=== PATIENT | female | born 1985 | race Caucasian/White ===

== ENCOUNTER 2017-05-08 16:30 | Inpatient (IN) | payer MEDICAID, SELFPAY ==
[2015-05-18 13:12] VITALS: BMI 31.8
[2015-05-21 08:00] VITALS: BP 110/67
[2017-05-08 14:43] VITALS: BMI 32.3
[2017-05-08] MEDS: Lactated Ringers 1,000 ML 50 ML IV ×4 (17:00→23:42)
[2017-05-08 17:11] LABS: Bedside Glucose 67 mg/dL (70-110)
[2017-05-08 17:23] LABS: Hematocrit 36.5 % (37-47); Hemoglobin 12.3 g/dl (12.0-15.0); Mean Corp Hgb Conc 33.7 g/gl (32-36); Mean Corpuscular Hgb 29.3 pg (27.0-32.0); Mean Corpuscular Volume 86.9 fL (81-99); Mean Platelet Vol. 9.9 fl (6.2-12.0); Platelet Count 208 K/mm3 (150-450); RBC Distribution Width CV 14.1 % (11.6-14.6); RBC Distribution Width SD 43.1 fl (35.1-43.9); White Blood Count 15.1 K/mm3 (4.4-11.0)
[2017-05-08 17:27] LABS: Scan Indicated on CBC? Y/N NO
[2017-05-08 18:16] LABS: Bedside Glucose 72 mg/dL (70-110)
[2017-05-08 19:21] LABS: Bedside Glucose 77 mg/dL (70-110)
--- NOTE | 2017-05-08 19:33 | PCM.HP.OB ---
History Date of Admission: 05/08/17 Gestational age: 36 History of this : 32 yof @ 37 4/7 weeks w/ EDC of 05/25/17 by LMP c/w first trimester US w/ GDM on insulin presents in labor. No gross VB. Good FM. Ctxs increased in intensity this afternoon, was monitored on L&D and admitted for labor. OB h/x- 1 previous Surg hx - wisdom tooth extraction PMHX- spinal stenosis, GDM A1 previous , abnormal pap Family medical hx- noncontributory Allergies No Known Allergies Allergy (Verified 05/08/17 17:52) Current Medications Acetaminophen (Tylenol) 325 - 650 mg PO Q4H PRN PRN PRN Reason: PAIN OR FEVER >100.4F Al Hydroxide/Mg Hydroxide (Mylanta Ii) 15 - 30 ml PO Q4H PRN PRN PRN Reason: INDIGESTION Citric Acid/Sodium Citrate (Bicitra) 30 ml PO UD PRN Lactated Ringer's () 1,000 mls @ 50 mls/hr IV .Q20H RIVERA Last Admin: 05/08/17 19:28 Dose: 50 mls/hr Naloxone HCl 4 mg/ Dextrose 504 mls @ 0 mls/hr IV PRN PRN; Protocol PRN Reason: TO MAINTAIN RR>10 Stop: 05/09/17 19:27 Nalbuphine HCl (Nubain) 5 - 10 mg IV Q3H PRN PRN PRN Reason: PAIN (4-10/10) Nalbuphine HCl (Nubain) 5 mg IV Q3H PRN PRN Reason: ITCHING Stop: 05/09/17 19:26 Naloxone HCl (Narcan) 0.2 mg IV Q1M PRN PRN Reason: RR<10 AND PT UNRESPONSIVE Stop: 05/09/17 19:26 Ondansetron HCl (Zofran) 4 mg IV Q8H PRN PRN PRN Reason: NAUSEA Promethazine HCl (Phenergan (Ll)) 6.25 - 12.5 mg IV Q4H PRN PRN; Protocol PRN Reason: IF NAUSEA PERSISTS Sodium Chloride () 5 - 15 ml IV UD RIVERA Last Admin: 05/08/17 18:18 Dose: Not Given Smoking Status: Never smoker Alcohol: None - during Drug Use: none Number of Fetus(es): 1 Review of Systems Constitutional: Denies: Fever Cardiovascular: Denies: Chest Pain Respiratory: Denies: Shortness of Breath Physical Exam Vitals: Vital Signs BP 110/67 05/21/15 08:00 General: Alert, Cooperative, No apparent distress Cardiovascular: Regular rate Lungs: Normal air movement Abdomen: Soft, Non Tender, Non-Distended, Gravid Extremities:: Other - edema1+ Estimated gestational size: Large for gestational age Presentation: Cephalic Cervix Dilation (cm): 5 - AROm- mod. clear fluid Station: -2 Effacement (%): 70 Assessment/Plan 32 YOF @ 37 4/7 weeks w/ GDM in labor EFW < 4250 gm, pelvis clinically adequate for vaginal delivery Epidural if desires Monitor BS, initial BS low, may need insulin if they elevate
[2017-05-08 20:06] LABS: Bedside Glucose 76 mg/dL (70-110)
[2017-05-08 21:16] LABS: Bedside Glucose 77 mg/dL (70-110)
[2017-05-08 22:21] LABS: Bedside Glucose 90 mg/dL (70-110)
[2017-05-08 23:16] LABS: Bedside Glucose 92 mg/dL (70-110)
[2017-05-09] MEDS: Oxytocin 30 units/NS 500 ml 30 UNITS/500 ML IV.SOLN 334 UNITS IV (01:43)
--- NOTE | 2017-05-09 01:53 | PCM.OB.VAG ---
Vaginal Delivery Maternal Presentation: Active Labor Amniotic Membrane Rupture Type: Artificial Amniotic Fluid Description: Clear Final GINO: 05/25/17 Final GINO Source: LMP Gestational age: 37 Weeks and 5 Days Date of Procedure: 05/09/17 Pre-Operative Diagnosis: labor Post-Operative Diagnosis: same Surgery/ Procedure Performed: Spontaneous Vaginal Delivery Type of Anesthesia: Epidural Description of Procedure: A vigorous female infant was delivered MOISÉS over a second-degree perineal laceration. A loose nuchal cord ?1 was easily reduced. The remainder the was delivered with maternal pushing and gentle traction only in less than 15 seconds. The Pitocin infusion was initiated for active management of the third stage. The cord was clamped and cut after 1 minute. The was attended to by the waiting nursing staff. The placenta was delivered spontaneously and intact. The cervix and vagina were intact. The second-degree perineal laceration was repaired with 3-0 Vicryl suture in a running standard fashion. Sponge and needle counts were correct. A vaginal sweep was completed by me. Presentation: MOISÉS Placental Delivery Description: Spontaneous Placenta Disposition: [facility] Cord Vessel Description: 3 Vessels Nuchal Cord Compression: Without compression Cord Entanglement: Around neck x 1, loose Drain: Muñiz to straight drain Estimated Blood Loss: 300 Infant A gender: Female (1 minute): 8 (5 minute): 9 Episiotomy Description: None Laceration: 2nd degree Medications given after delivery: IV Pitocin Complications: None
[2017-05-09 02:11] LABS: Bedside Glucose 114 mg/dL (70-110)
[2017-05-09] MEDS: Oxytocin 30 units/NS 500 ml 30 UNITS/500 ML IV.SOLN 167 UNITS IV (02:13)
[2017-05-09] MEDS: 0.9% Saline Lock 10 ML Syringe IV (03:10)
[2017-05-09 07:50] VITALS: BP 102/59; PULSE 84; RESP 16; TEMP 37.3; O2SAT 97
--- NOTE | 2017-05-09 09:56 | PCM.PN.BLA ---
Progress Note S: Patient feels well O: AF, VS reviewed abd - soft, NT, ND, ff mid & below um A&P PPD#0 GDM on insulin - will monitor BS as patient was on high insulin dose
[2017-05-09] MEDS: Naproxen 250 MG Tablet PO (10:17)
[2017-05-09] MEDS: Dibucaine 30 GM Tube 1 APPLIC TOPICAL (10:22)
[2017-05-09 12:35] VITALS: BP 105/58; PULSE 78; RESP 18; TEMP 36.4; O2SAT 98
[2017-05-09 13:00] LABS: Bedside Glucose 98 mg/dL (70-110)
[2017-05-09 16:46] VITALS: BP 109/66; PULSE 66; RESP 20; TEMP 36.4
[2017-05-09 18:21] LABS: Bedside Glucose 95 mg/dL (70-110)
[2017-05-09 20:22] VITALS: BP 110/71; PULSE 72; RESP 18; TEMP 36.6
[2017-05-09] MEDS: Senna/Docusate Sodium 1 Tablet PO (20:32)
[2017-05-10 02:30] VITALS: BP 112/65; PULSE 69; RESP 18; TEMP 36.2
[2017-05-10 07:31] LABS: Bedside Glucose 99 mg/dL (70-110)
[2017-05-10 08:00] VITALS: BP 104/80; PULSE 71; RESP 17; TEMP 36.6; O2SAT 100
--- NOTE | 2017-05-10 10:13 | PCM.DCVAG ---
Discharge Diet: No Restrictions Discharge Activity: May Drive, May Shower May resume sexual activity in: 4-6 weeks Weight Bearing Status: Weight bearing as tolerated Additional Instructions: If you experience any of the following, contact your healthcare provider. Bleeding that soaks a pad every hour for 2 hours Fever 100.4 or higher Unrelieved incision or abdominal pain Swelling, redness, discharge or bleeding from your incision or episiotomy site Your incision begins to separate Problems urinating (including inability to urinate or burning while urinating). Visual changes Severe headache Flu-like symptoms Pain or redness in one of both of your breasts Pain, warmth, tenderness or swelling in your legs, especially the calf area Frequent nausea and vomiting Symptoms of depression or anxiety If you experience any of the following, call 911 or go to the nearest Emergency Room. Chest pain Problems breathing Seizure activity Partial or complete paralysis of a body part, slurred speech, weakness or drooping of the face, or a sudden inability to walk or hold your balance Allergies/Adverse Reactions: Allergies No Known Allergies Allergy (Verified 05/08/17 17:52) Medications to take at Discharge Vits [Prenatabs FA ] 1 tablet PO DAILY 05/13/15 Naproxen [Naprosyn] 250 - 500 mg PO Q8H PRN PRN #40 tab 05/10/17 The following prescriptions were given: Naproxen [Naprosyn] 250 - 500 mg PO Q8H PRN PRN #40 tab PRN Reason: Mild Pain (1-06/13) Primary Care Physician: James Castaneda,Out of [Primary Care Provider] -
--- NOTE | 2017-05-10 10:14 | DCINST_ITS ---
Discharge Diet: No Restrictions Discharge Activity: May Drive, May Shower May resume sexual activity in: 4-6 weeks Weight Bearing Status: Weight bearing as tolerated Additional Instructions: If you experience any of the following, contact your healthcare provider. * Bleeding that soaks a pad every hour for 2 hours * Fever 100.4 or higher * Unrelieved incision or abdominal pain * Swelling, redness, discharge or bleeding from your incision or episiotomy site * Your incision begins to separate * Problems urinating (including inability to urinate or burning while urinating) . * Visual changes * Severe headache * Flu-like symptoms * Pain or redness in one of both of your breasts * Pain, warmth, tenderness or swelling in your legs, especially the calf area * Frequent nausea and vomiting * Symptoms of depression or anxiety If you experience any of the following, call 911 or go to the nearest Emergency Room. * Chest pain * Problems breathing * Seizure activity * Partial or complete paralysis of a body part, slurred speech, weakness or drooping of the face, or a sudden inability to walk or hold your balance Allergies/Adverse Reactions: Allergies No Known Allergies Allergy (Verified 05/08/17 17:52) Medications to take at Discharge Vits [Prenatabs FA ] 1 tablet PO DAILY 05/13/15 Naproxen [Naprosyn] 250 - 500 mg PO Q8H PRN PRN #40 tab 05/10/17 The following prescriptions were given: Naproxen [Naprosyn] 250 - 500 mg PO Q8H PRN PRN #40 tab PRN Reason: Mild Pain (-06/13) Primary Care Physician: James Castaneda,Out of [Primary Care Provider] -
--- NOTE | 2017-05-10 10:14 | PCM.PN.OB ---
Subjective: No complaints - Physical Exam General: Alert, Oriented x3 Abdomen: Soft, Non Tender, Non-Distended - ff mid & below umb Extremities: No Calf Tenderness Vital Signs Temp Pulse Resp BP Pulse Ox 97.9 F 71 17 104/80 100 05/10/17 08:00 05/10/17 08:00 05/10/17 08:00 05/10/17 08:00 05/10/17 08:00 Oxygen Delivery Method Room Air Weight: 194 lb 3.636 oz Body Mass Index (BMI) 32.3 Intake and Output for Last 24 Hours 05/08/17 05/09/17 05/10/17 23:59 23:59 23:59 Intake Total 3545 / 3545 Output Total 800 / 800 1999 Balance -800 / -800 1545 / 1545 POC Glucose 05/10/17 05/09/17 05/09/17 07:23 17:48 12:46 POC Glucose 99 95 98 Assessment/Plan PPD#1 D/c home per patient request GDM - BS normal, patient will continue checking at home as she was on insulin in
[2017-05-10 13:15] VITALS: BP 105/67; PULSE 81; RESP 16
== END 2017-05-10 13:15 | disposition home or self-care (01) | DRG 775 ==
LOC: WPOUT 16:35 → WP 05-09 01:38
PROVIDERS: Admitting Provider Obstetrics & Gynecology; Visit Provider Obstetrics & Gynecology
DX: O24.424 Gestational diabetes mellitus in childbirth, insulin controlled (principal); O69.81X0 Labor and delivery complicated by cord around neck, without compression, not applicable or unspecified; O36.63X0 Maternal care for excessive fetal growth, third trimester, not applicable or unspecified; O70.1 Second degree perineal laceration during delivery; Z3A.37 37 weeks gestation of pregnancy; Z37.0 Single live birth
CPT/HCPCS: 59025; 59050; 82962; 85027; 86850; 86900; 99218; J7120; A4216; G0378

== ENCOUNTER → 2018-09-17 14:31 | Outpatient (CLI) | payer OTHER, SELFPAY ==
--- NOTE | 2018-09-17 14:44 | RAD_ITS ---
HISTORY: abnormal immunological findings in serum low back pain ADDITIONAL HISTORY: None provided. COMPARISON: None TECHNIQUE: AP pelvis Number of images including paperwork: 1 FINDINGS: BONES: No acute fracture. JOINTS: No subluxation. Facet arthropathy L5-S1. SOFT TISSUES: No distinct foreign body. RAD/Pelvis 1 or 2 Views IMPRESSION: No acute osseous abnormality. at 0402 Reported and signed by: Holli Dsouza MD Electronically Signed: Holli Dsouza MD at 4:02 EDT Tel , Service support ,
[2018-09-17 15:43] LABS: Absolute Lymphocyte Count 1.51 X10^3/ul (0.83-4.51); Absolute Neutrophil Count 3.6 X10^3/uL (2.0-7.7); Basophil# 0.07 X10^3/uL; Basophil% 1.2 % (0-1); Eosinophil# 0.15 X10^3/uL; Eosinophils% 2.6 % (0-5); Hematocrit 45.1 % (37-47); Hemoglobin 15.4 g/dl (12.0-15.0); Lymphocyte # 1.51 X10^3/ul (4.0); Lymphocyte % 26.5 % (19-41); Mean Corp Hgb Conc 34.1 g/gl (32-36); Mean Corpuscular Hgb 30.4 pg (27.0-32.0); Mean Corpuscular Volume 89.1 fL (81-99); Mean Platelet Vol. 9.9 fl (6.2-12.0); Neutrophil # 3.55 X10^3/uL (2.7-7.7); Neutrophil % 62.5 % (47-70); Platelet Count 298 K/mm3 (150-450); RBC Distribution Width SD 38.4 fl (35.1-43.9); Red Blood Count 5.06 M/mm3 (4.2-5.4); White Blood Count 5.7 K/mm3 (4.4-11.0)
[2018-09-17 15:44] LABS: POSITIVE COUNT NO; POSITIVE DIFFERENTIAL NO; POSITIVE MORPHOLOGY NO
[2018-09-17 15:48] LABS: International Normalized Ratio 1.2; Prothrombin Time (Protime)PT. 14.6 SECONDS (11.7-14.9)
[2018-09-17 15:49] LABS: Partial Thromboplast Time 31.1 Seconds (24.1-36.2)
[2018-09-17 16:14] LABS: Color, Urine Yellow (Yellow); Glucose, Dipstick Normal (Normal); Ketone-Dipstick Negative (Negative); Leukocyte Esterase-Dipstick Negative /ul (Negative); Nitrite-Dipstick Negative (Negative); Occult Blood-Urine Negative /ul (Negative); Protein-Dipstick Negative (Negative); Urine Bilirubin Dipstick Negative (Negative); Urine Clarity Sl. Cloudy (Clear); Urine Urobilinogen Normal (Normal)
[2018-09-17 16:17] LABS: ALB/GLOB Ratio 1.3 RATIO (0.9-2.4); AST(SGOT) 14 U/L (15-37); Alanine Aminotransfer ALT/SGPT 19 U/L (13-56); Albumin, Serum 4.4 g/dL (3.2-5.0); Alkaline Phosphatase 94 U/L (45-117); Anion Gap 7 (5-15); BUN 7 mg/dL (7-18); BUN/Creat Ratio 7.5 RATIO (10-20); Calcium,Total 8.9 mg/dL (8.5-10.1); Chloride 106 mmol/L (98-107); Creatinine, Serum 0.94 mg/dL (0.55-1.02); EST Glomerular Filtration Rate 72 mL/min (>60); Est Glom Filt Rate - Afr Amer 88 mL/min (>60); Globulin 3.5 g/dL (2.2-4.2); Glucose 104 mg/dL (74-106); Potassium 3.6 mmol/L (3.5-5.1); Protein, Total 7.9 g/dL (6.4-8.2); Sodium Level 142 mmol/L (136-145)
[2018-09-17 16:24] LABS: Protein, Urine (Random) < 6.0 mg/dL (<11.9)
[2018-09-21 15:42] LABS: Anti-Mitochondrial AB <20.0 Units (0.0-20.0)
[2018-09-21 16:01] LABS: Thrombin Time 18.4 sec (0.0-23.0)
[2018-09-22 12:06] LABS: Dilute Prothrombin Time (dPT) 42.7 sec (0.0-55.0); Dilute Russell Viper Venom 34.5 sec (0.0-47.0); Hexagonal Phase Phospholipid 1 sec (0-11); PTT-LA 36.3 sec (0.0-51.9); Thrombin Time 19.3 sec (0.0-23.0); dPT Confirm Ratio 0.96 Ratio (0.00-1.40)
[2018-09-22 15:08] LABS: HLA B27 Negative (.); Interpretation Comment: (.)
== END ==
PROVIDERS: Family Provider Nurse Practitioner Family; PCP Nurse Practitioner Family; Referring Provider Internal Medicine Rheumatology; Visit Provider Internal Medicine Rheumatology
DX: M35.7 Hypermobility syndrome (principal); M54.5 Low back pain; R76.8 Other specified abnormal immunological findings in serum
CPT/HCPCS: 36415; 72170; 80053; 81002; 81374; 82570; 83516; 84156; 85025; 85598; 85610; 85670; 85730

== ENCOUNTER → 2019-04-11 15:15 | Outpatient (CLI) | payer OTHER, SELFPAY ==
[2019-04-11 18:04] LABS: ALB/GLOB Ratio 1.3 RATIO (0.9-2.4); AST(SGOT) 13 U/L (15-37); Alanine Aminotransfer ALT/SGPT 21 U/L (13-56); Albumin, Serum 4.2 g/dL (3.2-5.0); Alkaline Phosphatase 98 U/L (45-117); Anion Gap 4 (5-15); BUN 14 mg/dL (7-18); BUN/Creat Ratio 11.6 RATIO (10-20); Calcium,Total 9.1 mg/dL (8.5-10.1); Chloride 107 mmol/L (98-107); Creatinine, Serum 1.21 mg/dL (0.55-1.02); EST Glomerular Filtration Rate 54 mL/min (>60); Est Glom Filt Rate - Afr Amer 65 mL/min (>60); Globulin 3.3 g/dL (2.2-4.2); Glucose 94 mg/dL (74-106); Potassium 3.5 mmol/L (3.5-5.1); Protein, Total 7.5 g/dL (6.4-8.2); Sodium Level 139 mmol/L (136-145)
[2019-04-11 18:10] LABS: Absolute Lymphocyte Count 1.96 X10^3/uL (0.83-4.51); Absolute Neutrophil Count 5.8 X10^3/uL (2.0-7.7); Basophil# 0.08 X10^3/uL; Basophil% 0.9 % (0-1); Eosinophil# 0.16 X10^3/uL; Eosinophils% 1.9 % (0-5); Hemoglobin 14.3 g/dL (12.0-15.0); Lymphocyte # 1.96 X10^3/ul (4.0); Lymphocyte % 22.9 % (19-41); Mean Corp Hgb Conc 33.3 g/dL (32-36); Mean Corpuscular Hgb 29.9 pg (27.0-32.0); Mean Corpuscular Volume 89.8 fL (81-99); Mean Platelet Vol. 9.9 fl (6.2-12.0); Monocyte# 0.59 X10^3/uL; Monocyte% 6.9 % (0-10); NRBC Flagged by Analyzer 0 % (0-5); Neutrophil # 5.75 X10^3/uL (2.7-7.7); Neutrophil % 67.3 % (47-70); Platelet Count 293 K/mm3 (150-450); RBC Distribution Width CV 11.5 % (11.6-14.6); RBC Distribution Width SD 37.2 fl (35.1-43.9); Red Blood Count 4.79 M/mm3 (4.2-5.4); White Blood Count 8.6 K/mm3 (4.4-11.0)
[2019-04-11 18:14] LABS: Protein, Urine (Random) < 6.0 mg/dL (<11.9); Protein:Creat Ratio 118 mg/g CRE (0-200)
[2019-04-11 18:22] LABS: Color, Urine Yellow (Yellow); Glucose, Dipstick Normal (Normal); Ketone-Dipstick Negative (Negative); Leukocyte Esterase-Dipstick Negative /ul (Negative); Nitrite-Dipstick Negative (Negative); Occult Blood-Urine Negative /ul (Negative); Protein-Dipstick Negative (Negative); Urine Bilirubin Dipstick Negative (Negative); Urine Clarity Clear (Clear); Urine Urobilinogen Normal (Normal)
[2019-04-13 11:42] LABS: Complement C3 97 mg/dL (82-167)
== END ==
PROVIDERS: Family Provider Nurse Practitioner Family; PCP Nurse Practitioner Family; Referring Provider Internal Medicine Rheumatology; Visit Provider Internal Medicine Rheumatology
DX: R76.8 Other specified abnormal immunological findings in serum (principal); M35.7 Hypermobility syndrome; M54.5 Low back pain
CPT/HCPCS: 36415; 80053; 81002; 82570; 84156; 85025; 86160

== ENCOUNTER → 2019-06-13 10:25 | Outpatient (CLI) | payer OTHER, SELFPAY ==
[2019-06-13 12:57] LABS: Anion Gap 5 (5-15); BUN 13 mg/dL (7-18); BUN/Creat Ratio 11.8 RATIO (10-20); Calcium,Total 9.1 mg/dL (8.5-10.1); Chloride 108 mmol/L (98-107); Cholesterol 179 mg/dL (200); EST Glomerular Filtration Rate 60 mL/min (>60); Est Glom Filt Rate - Afr Amer 73 mL/min (>60); Glucose 108 mg/dL (74-106); High Density Lipoprotein 45 mg/dL; Potassium 3.8 mmol/L (3.5-5.1); Sodium Level 138 mmol/L (136-145); Triglycerides 56 mg/dL; Very Low Density Lipoprotein 11 mg/dL (5-40)
== END ==
PROVIDERS: PCP Family Medicine; Referring Provider Family Medicine; Visit Provider Family Medicine
DX: Z13.1 Encounter for screening for diabetes mellitus (principal); Z13.220 Encounter for screening for lipoid disorders
CPT/HCPCS: 36415; 80048; 80061

== ENCOUNTER → 2022-01-14 | Outpatient (CLI) | payer OTHER, SELFPAY | END | disposition home or self-care (01) | PROVIDERS: PCP Family Medicine; Referring Provider Nurse Practitioner Women's Health; Visit Provider Nurse Practitioner Women's Health | DX: N92.0 Excessive and frequent menstruation with regular cycle (principal) | CPT/HCPCS: 36415; 84702 ==

== ENCOUNTER → 2022-01-21 | Outpatient (CLI) | payer OTHER, SELFPAY ==
[2022-01-28 17:33] LABS: HPV APTIMA, High Risk Negative (Negative)
== END | disposition home or self-care (01) ==
LOC: LABSPEC 15:19
PROVIDERS: PCP Family Medicine; Visit Provider Obstetrics & Gynecology
DX: Z12.4 Encounter for screening for malignant neoplasm of cervix (principal)
CPT/HCPCS: 87624; 88175; G0145

== ENCOUNTER → 2022-02-03 | Outpatient (CLI) | payer OTHER, SELFPAY ==
[2022-02-03 15:46] LABS: hCG Titer Quant., Serum 3795 mIU/mL (1-3)
== END | disposition home or self-care (01) ==
LOC: PAVLAB 14:45
PROVIDERS: PCP Family Medicine; Referring Provider Obstetrics & Gynecology; Visit Provider Obstetrics & Gynecology
DX: O02.1 Missed abortion (principal)
CPT/HCPCS: 36415; 84702

== ENCOUNTER → 2022-02-10 | Outpatient (CLI) | payer OTHER, SELFPAY ==
[2022-02-10 12:36] LABS: hCG Titer Quant., Serum 628 mIU/mL (1-3)
== END | disposition home or self-care (01) ==
LOC: PAVLAB 11:43
PROVIDERS: PCP Family Medicine; Referring Provider Obstetrics & Gynecology; Visit Provider Obstetrics & Gynecology
DX: O02.1 Missed abortion (principal)
CPT/HCPCS: 36415; 84702

== ENCOUNTER → 2022-02-21 | Outpatient (CLI) | payer OTHER, SELFPAY ==
[2022-02-21 18:15] LABS: hCG Titer Quant., Serum 141 mIU/mL (1-3)
== END | disposition home or self-care (01) ==
LOC: LAB 15:33
PROVIDERS: PCP Family Medicine; Referring Provider Nurse Practitioner Women's Health; Visit Provider Nurse Practitioner Women's Health
DX: O02.1 Missed abortion (principal)
CPT/HCPCS: 36415; 84702

== ENCOUNTER → 2022-03-03 | Outpatient (CLI) | payer OTHER, SELFPAY ==
[2022-03-03 13:53] LABS: hCG Titer Quant., Serum 18 mIU/mL (1-3)
== END | disposition home or self-care (01) ==
LOC: PAVLAB 11:49
PROVIDERS: PCP Family Medicine; Referring Provider Nurse Practitioner Women's Health; Visit Provider Nurse Practitioner Women's Health
DX: O02.1 Missed abortion (principal)
CPT/HCPCS: 36415; 84702

== ENCOUNTER → 2022-03-17 | Outpatient (CLI) | payer OTHER, SELFPAY ==
[2022-03-17 12:34] LABS: hCG Titer Quant., Serum 8 mIU/mL (1-3)
== END | disposition home or self-care (01) ==
LOC: PAVLAB 11:27
PROVIDERS: PCP Family Medicine; Referring Provider Nurse Practitioner Women's Health; Visit Provider Nurse Practitioner Women's Health
DX: N92.0 Excessive and frequent menstruation with regular cycle (principal)
CPT/HCPCS: 36415; 84702

== ENCOUNTER → 2022-04-09 | Outpatient (CLI) | payer OTHER, SELFPAY ==
[2022-04-09 12:05] LABS: hCG Titer Quant., Serum 1 mIU/mL (1-3)
== END | disposition home or self-care (01) ==
LOC: LAB 10:54
PROVIDERS: PCP Family Medicine; Referring Provider Obstetrics & Gynecology; Visit Provider Obstetrics & Gynecology
DX: O02.1 Missed abortion (principal)
CPT/HCPCS: 36415; 84702

== ENCOUNTER → 2022-09-17 | Outpatient (CLI) | payer OTHER, SELFPAY ==
[2022-09-17 13:15] LABS: hCG Titer Quant., Serum 981 mIU/mL (1-3)
== END | disposition home or self-care (01) ==
PROVIDERS: PCP Family Medicine; Referring Provider Obstetrics & Gynecology; Visit Provider Obstetrics & Gynecology
DX: N92.0 Excessive and frequent menstruation with regular cycle (principal)
CPT/HCPCS: 36415; 84702

== ENCOUNTER → 2022-09-19 | Outpatient (CLI) | payer OTHER, SELFPAY ==
[2022-09-19 14:55] LABS: hCG Titer Quant., Serum 315 mIU/mL (1-3)
== END | disposition home or self-care (01) ==
LOC: LAB 13:03
PROVIDERS: PCP Family Medicine; Referring Provider Obstetrics & Gynecology; Visit Provider Obstetrics & Gynecology
DX: N92.0 Excessive and frequent menstruation with regular cycle (principal)
CPT/HCPCS: 36415; 84702

== ENCOUNTER → 2023-01-03 | Outpatient (CLI) | payer OTHER, SELFPAY ==
[2023-01-03 11:53] LABS: hCG Titer Quant., Serum 151 mIU/mL (1-3)
== END | disposition home or self-care (01) ==
LOC: LAB 10:53
PROVIDERS: PCP Family Medicine; Referring Provider Obstetrics & Gynecology; Visit Provider Obstetrics & Gynecology
DX: N91.2 Amenorrhea, unspecified (principal)
CPT/HCPCS: 36415; 84702

== ENCOUNTER → 2023-01-05 | Outpatient (CLI) | payer OTHER, SELFPAY ==
[2023-01-05 13:57] LABS: hCG Titer Quant., Serum 504 mIU/mL (1-3)
== END | disposition home or self-care (01) ==
LOC: LAB 12:14
PROVIDERS: Obstetrics & Gynecology; PCP Family Medicine; Referring Provider Obstetrics & Gynecology; Visit Provider Obstetrics & Gynecology
DX: O02.1 Missed abortion (principal)
CPT/HCPCS: 36415; 84702

== ENCOUNTER → 2023-02-02 | Outpatient (CLI) | payer OTHER, SELFPAY ==
[2023-02-02 15:47] LABS: Absolute Lymphocyte Count 1.44 X10^3/uL (0.83-4.51); Absolute Neutrophil Count 8.5 X10^3/uL (2.0-7.7); Basophil# 0.08 X10^3/uL; Basophil% 0.7 % (0-1); Eosinophils% 0.9 % (0-5); Hematocrit 42.1 % (37-47); Hemoglobin 14.7 g/dL (12.0-15.0); Lymphocyte # 1.44 X10^3/ul (0.83-4.51); Lymphocyte % 13.2 % (19-41); Mean Corp Hgb Conc 34.9 g/dL (32-36); Mean Corpuscular Hgb 31.4 pg (27.0-32.0); Mean Platelet Vol. 9.5 fl (6.2-12.0); Monocyte# 0.82 X10^3/uL; Monocyte% 7.5 % (0-10); NRBC Flagged by Analyzer 0 % (0-5); Neutrophil # 8.46 X10^3/uL (2.7-7.7); Neutrophil % 77.2 % (47-70); Platelet Count 266 K/mm3 (150-450); RBC Distribution Width CV 12.3 % (11.6-14.6); RBC Distribution Width SD 39.7 fl (35.1-43.9); Red Blood Count 4.68 M/mm3 (4.2-5.4)
[2023-02-02 17:36] LABS: HIV - WCH Non-Reactive (Nonreactive); Hepatitis B Surface Antigen Non-Reactive (Nonreactive); Hepatitis C Antibody Non-Reactive (Nonreactive); Rubella IgG Reactive (Nonreactive); Syphilis Antibodies Non-reactive
[2023-02-05 08:11] LABS: Chlamydia By Nucleic Acid AMP Negative (Negative); Gonococcus By Nucleic Acid AMP Negative (Negative)
== END | disposition home or self-care (01) ==
PROVIDERS: PCP Family Medicine; Referring Provider Obstetrics & Gynecology; Visit Provider Obstetrics & Gynecology
DX: Z34.90 Encounter for supervision of normal pregnancy, unspecified, unspecified trimester (principal)
CPT/HCPCS: 36415; 85025; 86703; 86762; 86780; 86803; 86850; 86900; 86901; 87086; 87340; 87491; 87591

== ENCOUNTER → 2023-03-02 | Outpatient (CLI) | payer OTHER, SELFPAY | END | disposition home or self-care (01) | LOC: PAVLAB 13:59 | PROVIDERS: PCP Family Medicine; Referring Provider Registered Nurse; Visit Provider Registered Nurse | DX: O09.299 Supervision of pregnancy with other poor reproductive or obstetric history, unspecified trimester (principal); Z86.32 Personal history of gestational diabetes; Z3A.00 Weeks of gestation of pregnancy not specified | CPT/HCPCS: 36415; 83036 ==

== ENCOUNTER → 2023-06-15 | Outpatient (CLI) | payer OTHER, SELFPAY ==
[2023-06-15 10:23] LABS: Absolute Lymphocyte Count 0.99 X10^3/uL (0.83-4.51); Absolute Neutrophil Count 5.9 X10^3/uL (2.0-7.7); Basophil# 0.03 X10^3/uL; Basophil% 0.4 % (0-1); Eosinophil# 0.06 X10^3/uL; Eosinophils% 0.8 % (0-5); Hematocrit 36.4 % (37-47); Hemoglobin 12.3 g/dL (12.0-15.0); Lymphocyte # 0.99 X10^3/ul (0.83-4.51); Lymphocyte % 12.9 % (19-41); Mean Corp Hgb Conc 33.8 g/dL (32-36); Mean Corpuscular Hgb 31.2 pg (27.0-32.0); Mean Corpuscular Volume 92.4 fL (81-99); Mean Platelet Vol. 9.6 fl (6.2-12.0); Monocyte% 6.5 % (0-10); NRBC Flagged by Analyzer 0 % (0-5); Neutrophil # 5.93 X10^3/uL (2.7-7.7); Neutrophil % 77.4 % (47-70); Platelet Count 223 K/mm3 (150-450); Red Blood Count 3.94 M/mm3 (4.2-5.4); White Blood Count 7.7 K/mm3 (4.4-11.0)
[2023-06-15 11:32] LABS: HIV - WCH Non-Reactive (Nonreactive); Syphilis Antibodies Non-reactive
[2023-06-15 11:39] LABS: Glucose Challenge Gest 1H 50g 205 mg/dL (70-140)
== END | disposition home or self-care (01) ==
LOC: LAB 09:35
PROVIDERS: PCP Family Medicine; Visit Provider Obstetrics & Gynecology
DX: O09.90 Supervision of high risk pregnancy, unspecified, unspecified trimester (principal); Z3A.00 Weeks of gestation of pregnancy not specified
CPT/HCPCS: 36415; 82950; 85025; 86703; 86780

== ENCOUNTER → 2023-07-22 | Outpatient (CLI) | payer OTHER, SELFPAY ==
--- NOTE | 2023-07-22 13:22 | US_ITS ---
STUDY: OBSTETRICAL ULTRASOUND - BIOPHYSICAL PROFILE REASON FOR EXAM: Female, 38 years old GDM Growth and fell well being LMP: December 02, 2022. PRIOR ULTRASOUND: None. TECHNIQUE: Transabdominal TECHNICAL QUALITY: Adequate. FINDINGS: There is a single intrauterine fetus. The fetus is in a cephalic presentation. There is demonstrated cardiac activity with a heart rate of 127 bpm. There is a normal amniotic fluid volume. The largest amniotic fluid pocket measures 4.0 cm. The amniotic fluid index (JOYCE) is 11.9 cm. The placenta is anterior in location and is not low lying. There are Grade 0 placental changes. Age by LMP: 33 weeks, 1 days. GINO by LMP: September 08, 2023. age by prior US: 34 weeks, 0 days. GINO by prior US: September 02, 2023. BIOPHYSICAL PROFILE: Breathing Movements (FBM): 2 Gross Body Movements (GBM): 2 Tone (FT): 2 Amniotic Fluid Volume (AFV): 2 TOTAL SCORE: 8 8 IMPRESSION: Normal biophysical profile of 11/11. Electronically Signed: Dmitri Hernandez MD at 9:45 EDT , STUDY: SECOND AND THIRD TRIMESTER OBSTETRICAL ULTRASOUND - LIMITED REASON FOR EXAM: Female, 38 years old GDM Growth and fell well being LMP: December 02, 2022. PRIOR ULTRASOUND: None. TECHNIQUE: Transabdominal TECHNICAL QUALITY: Adequate. FINDINGS: There is a single intrauterine fetus. The fetus is in a cephalic presentation. There is demonstrated cardiac activity with a heart rate of 127 bpm. There is a normal amniotic fluid volume. The largest amniotic fluid pocket measures 4 cm. The amniotic fluid index (JOYCE) is 11.9 cm. The placenta is anterior in location and is not low lying. There are Grade 0 placental changes. Cervical length was not measured due to the head positioning. BIOMETRY: BPD: 8.4 cm: 33 weeks, 6 days HC: 30.8 cm: 34 weeks, 3 days AC: 30 cm: 34 weeks, 0 days FL: 6.7 cm: 34 weeks, 4 days Age by LMP: 33 weeks, 1 days. GINO by LMP: September 08, 2023. age by current US: 34 weeks, 0 days. GINO by current US: September 02, 2023. Estimated weight: 2394 grams, +/- 359 grams, 75 percentile. US/Biophysical Prof W/O Non Stres IMPRESSION: Single live intrauterine gestation with a mean gestational age of 34 weeks. Electronically Signed: Dmitri Hernandez MD at 9:47 EDT ,
== END | disposition home or self-care (01) ==
LOC: OPUS 13:22
PROVIDERS: PCP Family Medicine; Referring Provider Advanced Practice Midwife; Visit Provider Advanced Practice Midwife
DX: O24.419 Gestational diabetes mellitus in pregnancy, unspecified control (principal); Z3A.32 32 weeks gestation of pregnancy
CPT/HCPCS: 76816; 76819

== ENCOUNTER → 2023-07-28 | Outpatient (CLI) | payer OTHER, SELFPAY ==
--- NOTE | 2023-07-28 14:25 | US_ITS ---
STUDY: OBSTETRICAL ULTRASOUND - BIOPHYSICAL PROFILE REASON FOR EXAM: Female, 38 years old GDM LMP: December 02, 2022 PRIOR ULTRASOUND: Comparison is made with prior study dated July 22, 2023. TECHNIQUE: Transabdominal TECHNICAL QUALITY: Adequate. FINDINGS: There is a single intrauterine fetus. The fetus is in a cephalic presentation. There is demonstrated cardiac activity with a heart rate of 140 bpm. There is a normal amniotic fluid volume. The largest amniotic fluid pocket measures 7.2 cm. The amniotic fluid index (JOYCE) is 14.8 cm. The placenta is anterior in location and is not low lying. There are Grade 0 placental changes. Age by LMP: 34 weeks, 0 days. GINO by LMP: September 08, 2023. BIOPHYSICAL PROFILE: Breathing Movements (FBM): 2 Gross Body Movements (GBM): 2 Tone (FT): 2 Amniotic Fluid Volume (AFV): 2 TOTAL SCORE: US/Biophysical Prof W/O Non Stres IMPRESSION: Normal biophysical profile of 11/11. Electronically Signed: Dmitri Hernandez MD at 8:45 EDT ,
== END | disposition home or self-care (01) ==
LOC: OPUS 14:24
PROVIDERS: PCP Family Medicine; Referring Provider Advanced Practice Midwife; Visit Provider Advanced Practice Midwife
DX: O24.419 Gestational diabetes mellitus in pregnancy, unspecified control (principal); Z3A.00 Weeks of gestation of pregnancy not specified
CPT/HCPCS: 76819

== ENCOUNTER → 2023-07-31 | Outpatient (CLI) | payer OTHER, SELFPAY ==
[2023-07-31 16:42] LABS: Anion Gap 6 (5-15); BUN 9 mg/dL (7-18); BUN/Creat Ratio 11.5 RATIO (10-20); Calcium,Total 8.4 mg/dL (8.5-10.1); Chloride 107 mmol/L (98-107); Creatinine, Serum 0.78 mg/dL (0.55-1.02); EST Glomerular Filtration Rate 87 mL/min (>60); Est Glom Filt Rate - Afr Amer 105 mL/min (>60); Glucose 110 mg/dL (74-106); Potassium 3.8 mmol/L (3.5-5.1); Sodium Level 137 mmol/L (136-145)
== END | disposition home or self-care (01) ==
LOC: LAB 15:16
PROVIDERS: PCP Family Medicine; Referring Provider Registered Nurse; Visit Provider Registered Nurse
DX: O99.891 Other specified diseases and conditions complicating pregnancy (principal); R25.2 Cramp and spasm; Z3A.00 Weeks of gestation of pregnancy not specified
CPT/HCPCS: 36415; 80048

== ENCOUNTER → 2023-08-03 | Outpatient (CLI) | payer OTHER, SELFPAY ==
--- NOTE | 2023-08-03 13:25 | US_ITS ---
STUDY: OBSTETRICAL ULTRASOUND - BIOPHYSICAL PROFILE REASON FOR EXAM: Female, 38 years old GDM LMP: December 02, 2022. PRIOR ULTRASOUND: Comparison is made with prior study dated July 28, 2023. TECHNIQUE: Transabdominal TECHNICAL QUALITY: Adequate. FINDINGS: There is a single intrauterine fetus. The fetus is in a cephalic presentation. There is demonstrated cardiac activity with a heart rate of 132 bpm. There is a normal amniotic fluid volume. The largest amniotic fluid pocket measures 5.1 cm x 7.5 cm. The amniotic fluid index (JOYCE) is 16.4 cm. The placenta is anterior in location and is not low lying. There are Grade 0 placental changes. Age by LMP: 33 weeks, 6 days. GINO by LMP: September 08, 2023. age by prior US: 35 weeks, 4 days. GINO by prior US: September 02, 2023. BIOPHYSICAL PROFILE: Breathing Movements (FBM): 2 Gross Body Movements (GBM): 2 Tone (FT): 2 Amniotic Fluid Volume (AFV): 2 TOTAL SCORE: 8 / 8 US/Biophysical Prof W/O Non Stres IMPRESSION: Normal biophysical profile of 8/8. Electronically Signed: Dmitri Hernandez MD at 14:48 EDT ,
== END | disposition home or self-care (01) ==
LOC: OPUS 13:25
PROVIDERS: PCP Family Medicine; Referring Provider Advanced Practice Midwife; Visit Provider Advanced Practice Midwife
DX: O24.419 Gestational diabetes mellitus in pregnancy, unspecified control (principal); Z3A.00 Weeks of gestation of pregnancy not specified
CPT/HCPCS: 76819

== ENCOUNTER → 2023-08-11 | Outpatient (CLI) | payer OTHER, SELFPAY ==
--- NOTE | 2023-08-11 13:34 | US_ITS ---
STUDY: OBSTETRICAL ULTRASOUND - BIOPHYSICAL PROFILE REASON FOR EXAM: Female, 38 years old GDM LMP: 12/02/2022 PRIOR ULTRASOUND: 08/03/2023 TECHNIQUE: Transabdominal TECHNICAL QUALITY: Adequate. FINDINGS: There is a single intrauterine fetus. The fetus is in a cephalic presentation. There is demonstrated cardiac activity with a heart rate of 150 bpm. There is a normal amniotic fluid volume. The largest amniotic fluid pocket measures 6.4 cm. The amniotic fluid index (JOYCE) is 11.3 cm. The placenta is anterior in location and is not low lying. There are Grade 0 placental changes. Age by LMP: 36 weeks, 0 days. GINO by LMP: 09/08/2023. BIOPHYSICAL PROFILE: Breathing Movements (FBM): 2 Gross Body Movements (GBM): 2 Tone (FT): 2 Amniotic Fluid Volume (AFV): 2 TOTAL SCORE: US/Biophysical Prof W/O Non Stres IMPRESSION: Normal biophysical profile of 11/11. Electronically Signed: Itz Vargas MD at 23:59 EDT ,
[2023-08-11 15:07] LABS: Ferritin 8 ng/mL (8-252); Iron Binding Capacity,Total 546 ug/dL (250-450)
== END | disposition home or self-care (01) ==
PROVIDERS: Nurse Practitioner Women's Health; PCP Family Medicine; Referring Provider Advanced Practice Midwife; Visit Provider Advanced Practice Midwife
DX: O24.419 Gestational diabetes mellitus in pregnancy, unspecified control (principal); Z3A.00 Weeks of gestation of pregnancy not specified; O99.891 Other specified diseases and conditions complicating pregnancy; R25.2 Cramp and spasm
CPT/HCPCS: 36415; 76819; 82728; 83550

== ENCOUNTER → 2023-08-15 | Outpatient (CLI) | payer OTHER, SELFPAY | END | disposition home or self-care (01) | LOC: LABSPEC 09:16 | PROVIDERS: PCP Family Medicine; Referring Provider Obstetrics & Gynecology; Visit Provider Obstetrics & Gynecology | DX: O09.90 Supervision of high risk pregnancy, unspecified, unspecified trimester (principal); Z3A.00 Weeks of gestation of pregnancy not specified | CPT/HCPCS: 87081 ==

== ENCOUNTER → 2023-08-17 | Outpatient (CLI) | payer OTHER, SELFPAY ==
--- NOTE | 2023-08-17 13:29 | US_ITS ---
INDICATION: GDM EXAMINATION: Ultrasound US Biophysical Profile W/O Nonst TECHNIQUE: Transabdominal pelvic ultrasound was performed. COMPARISON: August 11, 2023 FINDINGS: INTRAUTERINE GESTATION(s): Single. ESTIMATED GESTATIONAL AGE: 37 weeks and 2 days ESTIMATED DUE DATE (GINO): September 05, 2023 HEART MOTION is 136 bpm. AMNIOTIC FLUID INDEX (JOYCE): 14.4 ESTIMATED WEIGHT: 3451 Percentile 87.3%. BIOPHYSICAL PROFILE (BPP): 11/11 -- Breathin/2. -- Movement: 2/2. -- Tone: 2/2. --JOYCE: 2/2. PRESENTATION: Cephalic PLACENTA: Anterior. IMPRESSION: Single live intrauterine of with a biophysical profile of 11/11. Electronically Signed: Noelle Horton MD at 8:32 EDT , STUDY: SECOND AND THIRD TRIMESTER OBSTETRICAL ULTRASOUND - LIMITED REASON FOR EXAM: Female, 38 years old GDM PRIOR ULTRASOUND: August 11, 2023 TECHNIQUE: Transabdominal TECHNICAL QUALITY: Adequate. FINDINGS: INTRAUTERINE GESTATION(s): Single. BPD: 8.85 cm: 35 weeks, 5 days HC: 32.81 cm: 37 weeks, 2 days AC: 35.17 centimeters: 39 weeks, 1 days FL: 7.40 cm: 37 weeks, 6 days ESTIMATED GESTATIONAL AGE: 37 weeks and 2 days ESTIMATED DUE DATE (GINO): September 05, 2023 HEART MOTION is 136 bpm. AMNIOTIC FLUID INDEX (JOYCE): 14.4 ESTIMATED WEIGHT: 3451 Percentile 87.3%. BIOPHYSICAL PROFILE (BPP): 11/11 -- Breathin/2. -- Movement: 05/08. -- Tone: 05/08. --JOYCE: 05/08. PRESENTATION: Cephalic PLACENTA: Anterior. . US/Biophysical Prof W/O Non Stres IMPRESSION: Single live intrauterine with an estimated gestational age of 37 weeks and 2 days. Electronically Signed: Noelle Horton MD at 8:35 EDT ,
== END | disposition home or self-care (01) ==
PROVIDERS: PCP Family Medicine; Referring Provider Advanced Practice Midwife; Visit Provider Advanced Practice Midwife
DX: O24.419 Gestational diabetes mellitus in pregnancy, unspecified control (principal); Z3A.36 36 weeks gestation of pregnancy
CPT/HCPCS: 76816; 76819

== ENCOUNTER 2023-08-20 16:35 | Inpatient (IN) | payer OTHER, SELFPAY ==
[2023-08-20] VITALS (26 sets, daily range): BP systolic 90–138; BP diastolic 53–80; PULSE 76–112; RESP 16; TEMP 36.8–37.4; O2SAT 83–99; BMI 30.1
[2023-08-20] MEDS: Lactated Ringers 1,000 ML 200 ML IV (13:30)
[2023-08-20 13:47] LABS: ROM Internal Control Test YES-OK TO RESULT pt. (Internal QC); ROM Patient Test Negative (Negative)
[2023-08-20 13:48] LABS: Absolute Lymphocyte Count 1.45 X10^3/uL (0.83-4.51); Absolute Neutrophil Count 8.3 X10^3/uL (2.0-7.7); Basophil# 0.04 X10^3/uL; Basophil% 0.4 % (0-1); Eosinophil# 0.03 X10^3/uL; Eosinophils% 0.3 % (0-5); Hematocrit 38.4 % (37-47); Hemoglobin 12.9 g/dL (12.0-15.0); Lymphocyte # 1.45 X10^3/ul (0.83-4.51); Lymphocyte % 13.6 % (19-41); Mean Corp Hgb Conc 33.6 g/dL (32-36); Mean Corpuscular Volume 86.3 fL (81-99); Mean Platelet Vol. 9.5 fl (6.2-12.0); Monocyte# 0.82 X10^3/uL; Monocyte% 7.7 % (0-10); NRBC Flagged by Analyzer 0 % (0-5); Neutrophil # 8.29 X10^3/uL (2.7-7.7); Neutrophil % 77.3 % (47-70); Platelet Count 221 K/mm3 (150-450); RBC Distribution Width CV 14.6 % (11.6-14.6); RBC Distribution Width SD 44.9 fl (35.1-43.9); Red Blood Count 4.45 M/mm3 (4.2-5.4); White Blood Count 10.7 K/mm3 (4.4-11.0)
[2023-08-20 14:23] LABS: Bedside Glucose 92 mg/dL (74-106)
[2023-08-20] MEDS: Lactated Ringers 1,000 ML 100 ML IV (16:30)
[2023-08-20] MEDS: LACTATED RINGERS 500 ML 999 ML IV (17:20)
[2023-08-20] MEDS: fentaNYL-bupivacaine (epidural) 100 ML BAG EPIDURAL (18:20)
[2023-08-20 19:16] LABS: Syphilis Antibodies Non-reactive
[2023-08-20 19:16] LABS: Bedside Glucose 79 mg/dL (74-106)
--- NOTE | 2023-08-20 20:49 | HP.PCM.OB_ITS ---
HPI - General General Date of Admission: 08/20/23 HPI Narrative LIVAN WHITE, is a 38 F who presents IAL regular ctx no vb questionable lof admits good fm. rom plus negative made change to 5 cm. Maternal Data Information GINO Calculator Estimated Delivery Date Method Current WG Current Estimate 09/08/23 Ultrasound #1 37w 2d Other Estimates 09/15/23 LMP (Certain) 36w 2d PFSH PFSH Medical History Miscarriage Missed History of elevated antinuclear antibody (MISTY) Hx of abnormal cervical Pap smear Hx of gestational diabetes in prior , currently Home Medications ?Medication ?Instructions ?Recorded ?Last Taken ?Type vits,calcium no.78-iron 1 tab PO DAILY 05/13/15 08/19/23 History fumarate-folic acid 29 mg-1 mg tablet (Prenatabs FA) insulin NPH isoph U-100 human 100 10 unit subcut QPM gestational 07/17/23 08/20/23 History unit/mL (3 mL) subcutaneous pen diabetic (Novolin N FlexPen) buspirone 7.5 mg tablet 7.5 mg PO HS PRN insomnia #30 tabs 08/14/23 Unknown Rx ferrous gluconate 240 mg (27 mg 240 mg PO DAILY low iron #30 tabs 08/14/23 Unknown Rx iron) tablet Allergy/AdvReac Type Severity Reaction Status Date / Time No Known Allergies Allergy Verified 08/20/23 11:32 Family History Grandmother Colon cancer, Onset Age: 80 Mother Lupus Surgical History Sula teeth extracted Social History adopted: No household members: spouse and children housing: house number of children: 2 current occupational status: employed 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- [employer] pets and animals: Yes pets and animals: dog(s) history of recent travel: No sexually active: Yes Smoking Status: Never smoker alcohol intake: never substance use type: does not use well-balanced diet: daily or most days caffeine: No eating out: 1-3 times/week during the past year weight has: remained stable what type of physical activity do you participate in: walking and weight training frequency: 3-4 times per week duration: 15-30 minutes/day dominga/sabianism: Latter-Day seatbelt use: always do you feel safe at home: Yes 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 Date Name GA/Weeks Outcome Route Bth Weight Infant Gen Labor Lgth Anesthesia Del Locatn Provider FOB 05/19/15 Juan 38 live - full term 8#0oz Male 8 hrs epid ural [facility] Shawna Porter 05/09/17 Erica 37 live - full term 7# Female 8 hours epi dural [facility] Ruperto Alcaraz Delivery Date: 05/19/15 Last Updated by: Annabelle Floyd Forceps, IOL Visit Details Expected Delivery Route/Plan Labor Preferences- CB/BF classes: no labor support person: Kieran labor intervention preferences: [] pain management options preferred: epidural cut cord/dad catch: no : yes PP control planned: condom/vas discussed possible routes of delivery and associated risks: [] special requests: [] Plans Covid status: declined Flu vaccine: declined Tdap vaccine: [] Rhogam: na LARC form signed: yes Problem list reviewed and updated with the most current plan of care details and appropriate orders placed. Relevant counseling for the gestational age provided. Continue routine care and follow up unless otherwise noted in visit notes/problem list details OB Flowsheet Initial Weight: Not Recorded Date -?-?-?-?-?-?-?-?-?-?-?-?- EGA Weight BP Urine Prot -?-?-?-?-?-?-?-?-?-?-?-?- Glucose FHR FuHt Pres Dilation -?-?-?-?-?-?-?-?-?-?-?-?- Effaced St Visit Note 02/02/23 -?-?-?-?-?-?-?-?-?-?-?-?- 8w 6d 166 lb 139/91 -?-?-?-?-?-?-?-?-?-?-?-?- 189 -?-?-?-?-?-?-?-?-?-?-?-?- JV- CRL off by o ne week. new GINO given. pt declines nipt. 03/02/23 -?-?-?-?-?-?-?-?-?-?-?-?- 12w 6d 168 lb 6 oz 133/88 Nega tive -?-?-?-?-?-?-?-?-?-?-?-?- Negative 152 -?-?-?-?-?-?-?-?-?-?-?-?- LC- no vb/crampi ng. declines afp. to order mfm anatomy. hbga1c ordered today. has continuous glucose monitor she pays out of pocket. all fastings under 90. 04/02/23 -?-?-?-?-?-?-?-?-?-?-?-?- 17w 2d 172 lb 131/83 Negative -?-?-?-?-?-?-?-?-?-?-?-?- Negative 155 -?-?-?-?-?-?--?-?-?-?-?-?- MH-No VB, crampi ng. Feeling well. Denies concerns 05/01/23 -?-?-?-?-?-?-?-?-?-?-?-?- 21w 3d 178 lb 124/78 -?-?-?-?-?-?-?-?-?-?-?-?- 150 -?-?-?-?-?-?-?-?-?-?-?-?- Sm- no vb lof go od fm no regular ctx 05/29/23 -?-?-?-?-?-?-?-?-?-?-?-?- 25w 3d 183 lb 2 oz 129/76 Nega tive -?-?-?-?-?-?-?-?-?-?-?-?- Negative 150 27 -?-?-?-?-?-?-?-?-?-?-?-?- JV- pt is going to pass on getting the extra views of heart because going to cost $2300. all 4 chambers were seen. 06/15/23 -?-?-?-?-?-?-?-?-?-?-?-?- 27w 6d 185 lb 126/72 Negative -?-?-?-?-?-?-?-?-?-?-?-?- Negative 153 29 -?-?-?-?-?-?-?-?-?-?-?-?- MH-No VB, LOF> G ood FM. 28wk labs pending. Larc. 07/03/23 -?-?-?-?-?-?-?-?-?-?-?-?- 30w 3d 184 lb 6 oz 137/77 Nega tive -?--?-?-?-?-?-?-?-?-?-?-?- Negative 140 32 -?-?-?-?-?-?-?-?-?-?-?-?- SM- reveiwed hig h protein snack at night to help with borderline fasting, fu with endocrine next week. no vb lof good fm nor egular ctx 07/17/23 -?-?-?-?-?-?-?-?-?-?-?-?- 32w 3d 184 lb 8 oz 118/70 Nega tive -?-?-?-?-?-?-?-?-?-?-?-?- Negative 145 33 -?-?-?-?-?-?-?-?-?-?-?-?- KW- no vb/lof/ct x. good fm. Just started Insulin 10units HS. discussed BPPs/growth USs and NSTs delivery at 39 weeks. 07/24/23 -?-?--?-?-?-?-?-?-?-?-?-?- 33w 3d 184 lb 108/70 Negative -?-?-?-?-?-?-?-?-?-?-?-?- Negative 135 -?-?-?-?-?-?-?-?-?-?-?-?- KW- NST only Velvet ctive. 07/31/23 -?-?-?-?-?-?-?-?-?-?-?-?- 34w 3d 182 lb 8 oz 101/67 Nega tive -?-?-?-?-?-?-?-?-?-?-?-?- Negative 135 34 -?-?-?-?-?-?-?-?-?-?-?-?- LC- no vb/ctx/lo f. good fm. BS controlled. BMP ordered for continued leg cramping preventing sleep nightly. reactive nst. 08/14/23 -?-?-?-?-?-?-?-?-?-?-?-?- 36w 3d 185 lb 2 oz 113/80 Nega tive -?-?-?-?-?-?-?-?-?-?-?-?- Negative 140 36 Cephalic 1 .5 -?-?-?-?-?-?-?-?-?-?-?-?- 50 -2 JV- trying new iron. slow FE caused diarrhea. trying buspar for insomnia. pt tearful about lack of sleep. glucose log normal. mild anemia only NST FHR Rate Baby A Baseline: 140 Variability:: Moderate Accelerations:: 15 x 15 Decelerations:: None NST Reactive:: Yes FHR Category:: Category I Uterine Activity:: q3-5 ROS Constitutional Constitutional: Reports systems reviewed and no addt'l complaints, except as documented ENT HEENT: Reports systems reviewed and no addt'l complaints, except as documented Cardiovascular Cardiovascular: Reports systems reviewed and no addt'l complaints, except as documented Respiratory/Chest Respiratory/Chest: Reports systems reviewed and no addt'l complaints, except as documented Gastrointestinal Gastrointestinal: Reports systems reviewed and no addt'l complaints, except as documented and nausea; Denies abdominal pain Genitourinary Genitourinary: Reports systems reviewed and no addt'l complaints, except as documented, contractions Details: present and frequency (regular ) and movement Details: present Musculoskeletal Musculoskeletal: Reports systems reviewed and no addt'l complaints, except as documented Integumentary Integumentary: Reports as per HPI Neurologic Neurologic: Reports systems reviewed and no addt'l complaints, except as documented Endocrine Endocrinology: Reports systems reviewed and no addt'l complaints, except as documented Vital Signs Vital Signs Vital Signs: 08/20/23 17:20 08/20/23 17:20 08/20/23 17:25 Temperature Temperature Source Pulse Rate Respiratory Rate 16 16 16 Blood Pressure BP Systolic BP Diastolic Pulse Ox 08/20/23 17:25 08/20/23 17:28 08/20/23 17:28 Temperature Temperature Source Pulse Rate 112 H 112 H Respiratory Rate 16 Blood Pressure BP Systolic BP Diastolic Pulse Ox 08/20/23 17:28 08/20/23 17:28 08/20/23 17:30 Temperature Temperature Source Pulse Rate 105 H Respiratory Rate Blood Pressure BP Systolic BP Diastolic Pulse Ox 97 97 08/20/23 17:30 08/20/23 17:30 08/20/23 17:30 Temperature Temperature Source Pulse Rate 105 H Respiratory Rate Blood Pressure BP Systolic BP Diastolic Pulse Ox 93 93 08/20/23 17:30 08/20/23 17:30 08/20/23 17:33 Temperature Temperature Source Pulse Rate 103 H Respiratory Rate 16 16 Blood Pressure BP Systolic BP Diastolic Pulse Ox 08/20/23 17:33 08/20/23 17:33 08/20/23 17:33 Temperature Temperature Source Pulse Rate 103 H Respiratory Rate Blood Pressure BP Systolic BP Diastolic Pulse Ox 99 99 08/20/23 17:34 08/20/23 17:34 08/20/23 17:34 Temperature Temperature Source Pulse Rate 99 Respiratory Rate Blood Pressure 133/78 H 133/78 H BP Systolic 133 133 BP Diastolic 78 78 Pulse Ox 08/20/23 17:34 08/20/23 17:35 08/20/23 17:35 Temperature Temperature Source Pulse Rate 99 Respiratory Rate 16 16 Blood Pressure BP Systolic BP Diastolic Pulse Ox 08/20/23 17:37 08/20/23 17:37 08/20/23 17:37 Temperature Temperature Source Pulse Rate 98 98 Respiratory Rate 16 Blood Pressure BP Systolic BP Diastolic Pulse Ox 08/20/23 17:37 08/20/23 17:38 08/20/23 17:38 Temperature Temperature Source Pulse Rate 89 89 Respiratory Rate 16 Blood Pressure BP Systolic BP Diastolic Pulse Ox 08/20/23 17:38 08/20/23 17:38 08/20/23 17:39 Temperature Temperature Source Pulse Rate Respiratory Rate Blood Pressure 121/72 H BP Systolic 121 BP Diastolic 72 Pulse Ox 98 98 08/20/23 17:39 08/20/23 17:39 08/20/23 17:39 Temperature Temperature Source Pulse Rate 94 94 Respiratory Rate Blood Pressure 121/72 H BP Systolic 121 BP Diastolic 72 Pulse Ox 08/20/23 17:43 08/20/23 17:43 08/20/23 17:43 Temperature Temperature Source Pulse Rate 98 98 Respiratory Rate Blood Pressure BP Systolic BP Diastolic Pulse Ox 99 08/20/23 17:43 08/20/23 17:44 08/20/23 17:44 Temperature Temperature Source Pulse Rate Respiratory Rate Blood Pressure 118/70 118/70 BP Systolic 118 118 BP Diastolic 70 70 Pulse Ox 99 08/20/23 17:44 08/20/23 17:44 08/20/23 17:48 Temperature Temperature Source Pulse Rate 90 90 91 Respiratory Rate Blood Pressure BP Systolic BP Diastolic Pulse Ox 08/20/23 17:48 08/20/23 17:48 08/20/23 17:48 Temperature Temperature Source Pulse Rate 91 Respiratory Rate Blood Pressure BP Systolic BP Diastolic Pulse Ox 97 97 08/20/23 17:50 08/20/23 17:50 08/20/23 17:50 Temperature Temperature Source Pulse Rate 111 H Respiratory Rate Blood Pressure 120/75 120/75 BP Systolic 120 120 BP Diastolic 75 75 Pulse Ox 08/20/23 17:50 08/20/23 17:53 08/20/23 17:53 Temperature Temperature Source Pulse Rate 111 H 89 89 Respiratory Rate Blood Pressure BP Systolic BP Diastolic Pulse Ox 08/20/23 17:53 08/20/23 17:53 08/20/23 17:56 Temperature Temperature Source Pulse Rate Respiratory Rate Blood Pressure 131/70 H BP Systolic 131 BP Diastolic 70 Pulse Ox 97 97 08/20/23 17:56 08/20/23 17:56 08/20/23 17:56 Temperature Temperature Source Pulse Rate 86 86 Respiratory Rate Blood Pressure 131/70 H BP Systolic 131 BP Diastolic 70 Pulse Ox 08/20/23 18:14 08/20/23 18:14 08/20/23 18:14 Temperature Temperature Source Pulse Rate 80 Respiratory Rate Blood Pressure 111/60 111/60 BP Systolic 111 111 BP Diastolic 60 60 Pulse Ox 08/20/23 18:14 08/20/23 18:29 08/20/23 18:29 Temperature Temperature Source Pulse Rate 80 Respiratory Rate Blood Pressure 132/76 H 132/76 H BP Systolic 132 132 BP Diastolic 76 76 Pulse Ox 08/20/23 18:29 08/20/23 18:29 08/20/23 18:43 Temperature Temperature Source Pulse Rate 88 88 Respiratory Rate Blood Pressure 126/80 H BP Systolic 126 BP Diastolic 80 Pulse Ox 08/20/23 18:43 08/20/23 18:43 08/20/23 18:43 Temperature Temperature Source Pulse Rate 82 82 Respiratory Rate Blood Pressure 126/80 H BP Systolic 126 BP Diastolic 80 Pulse Ox 08/20/23 18:58 08/20/23 18:58 08/20/23 18:58 Temperature Temperature Source Pulse Rate 83 Respiratory Rate Blood Pressure 116/70 116/70 BP Systolic 116 116 BP Diastolic 70 70 Pulse Ox 08/20/23 18:58 08/20/23 19:14 08/20/23 19:14 Temperature Temperature Source Pulse Rate 83 Respiratory Rate Blood Pressure 138/80 H 138/80 H BP Systolic 138 138 BP Diastolic 80 80 Pulse Ox 08/20/23 19:14 08/20/23 19:14 08/20/23 19:26 Temperature Temperature Source Pulse Rate 85 85 Respiratory Rate Blood Pressure BP Systolic BP Diastolic Pulse Ox 83 08/20/23 19:26 08/20/23 19:26 08/20/23 19:26 Temperature Temperature Source Pulse Rate Respiratory Rate Blood Pressure 108/55 L 108/55 L BP Systolic 108 108 BP Diastolic 55 55 Pulse Ox 83 08/20/23 19:26 08/20/23 19:26 08/20/23 19:26 Temperature Temperature Source Pulse Rate 83 83 Respiratory Rate Blood Pressure BP Systolic BP Diastolic Pulse Ox 97 08/20/23 19:26 08/20/23 19:26 08/20/23 19:26 Temperature Temperature Source Temporal Temporal Pulse Rate Respiratory Rate Blood Pressure BP Systolic BP Diastolic Pulse Ox 97 08/20/23 19:26 08/20/23 19:26 08/20/23 19:26 Temperature 99.4 F H Temperature Source Pulse Rate Respiratory Rate 16 16 Blood Pressure BP Systolic BP Diastolic Pulse Ox 08/20/23 19:26 Temperature 99.4 F H Temperature Source Pulse Rate Respiratory Rate Blood Pressure BP Systolic BP Diastolic Pulse Ox Weight Weight: 181 lb 4 oz Body Mass Index (BMI) 30.1 Physical Exam Const alert, oriented x3 and healthy appearing Constitutional Narrative: uncomfortable with contractions HEENT normocephalic and moist oral mucous membranes Head and Scalp: atraumatic Neck full ROM, no lymphadenopathy, supple and thyroid normal General: trachea midline Thyroid: thyroid normal Lymph Lymphatic: no lymphadenopathy noted Chest inspection of chest normal Resp normal respiratory effort Cardio regular rate GI normal to inspection, nondistended, normoactive bowel sounds, soft to palpation and non-tender Inspection: gravid external exam normal Bimanual Exam - Vag & Uterus: uterus non-tender Manual OB Exam: estimated gestational size appropriate, presentation cephalic, dilated, effaced and station Extremity normal to inspection General Extremity: Negative for edema Skin no rashes or lesions noted Neuro deep tendon reflexes 2+ bilaterally Motor Exam: strength 5/5 throughout and clonus absent Psych mental status grossly normal Labs Labs Labs: Blood Type O POSITIVE Antibody Screen NEGATIVE Hct 38.4 % (37-47) Hgb 12.9 g/dL (12.0-15.0) Syphilis Total Ab Non-reactive Rubella IgG Antibody Reactive (Nonreactive) Hep Bs Antigen Non-Reactive (Nonreactive) Hepatitis C Antibody Non-Reactive (Nonreactive) Chlamydia DNA (ENA) Negative (Negative) N.gonorrhoeae DNA (EAN) Negative (Negative) HIV 1&2 Antibody Non-Reactive (Nonreactive) Glucose 1 Hr 50 gm 205 mg/dL (70-140) H Rhogam given: No Miscellaneous Test Assessment & Plan (1) Hx of gestational diabetes in prior , currently : COMMENT: Ordered HgbA1c at [facility]- (2) Supervision of high-risk : QUALIFIERS: Trimester: second trimester Qualified Code(s): O09.92 - Supervision of high risk , unspecified, second trimester COMMENT: [id number], GINO 09/15/23, girl [place] Erica Mario Kieran (3) Advanced maternal age (AMA) in : COMMENT: declined genetic screening, 36 week growth US recommended, delivery by 40 weeks. (4) : QUALIFIERS: Weeks of gestation: 37 weeks Qualified Code(s): Z3A.37 - 37 weeks gestation of COMMENT: GBS neg, declines ntd genetic & carrier testing, anatomy scan fu views of heart ordered-pt declined as not covered by US (5) Gestational diabetes: QUALIFIERS: Gestational diabetes mellitus control: unspecified Trimester: third trimester Qualified Code(s): O24.419 - Gestational diabetes mellitus in , unspecified control COMMENT: 10 units at HS twice weekly testing and 32+36wk growth US. deliver by 39 (6) Leg cramps in : (7) Iron deficiency anemia during , antepartum: COMMENT: add FE. PLAN: Plan Patient presents IAL, plan expectant management for , pitocin/AROM PRN if needed. Pain management: plans epidural. GBS neg. Management of any complications: none I have reviewed the PFSH and made any clinically relevant updates.
[2023-08-20 23:13] LABS: Bedside Glucose 74 mg/dL (74-106)
[2023-08-21] VITALS (30 sets, daily range): BP systolic 90–116; BP diastolic 51–87; PULSE 66–94; RESP 16; TEMP 36.4–37.5; O2SAT 95–99
[2023-08-21] MEDS: 0.9% Saline Lock 10 ML Syringe IV (00:23)
[2023-08-21] MEDS: Ondansetron 4 MG/2 ML Vial IV (00:23)
[2023-08-21 00:31] LABS: Bedside Glucose 93 mg/dL (74-106)
[2023-08-21 01:52] LABS: Bedside Glucose 112 mg/dL (74-106)
[2023-08-21] MEDS: Oxytocin 15 Units/NS 250ml 15 UNITS/250 ML IV.SOLN 83 UNITS IV (02:19)
[2023-08-21] MEDS: Oxytocin 10 UNITS/ML Vial IM (02:20)
--- NOTE | 2023-08-21 02:28 | OP.PCM_ITS ---
Assessment & Plan (1) Iron deficiency anemia during , antepartum: COMMENT: add FE. (2) Leg cramps in : (3) Gestational diabetes: QUALIFIERS: Gestational diabetes mellitus control: unspecified Trimester: third trimester Qualified Code(s): O24.419 - Gestational diabetes mellitus in , unspecified control COMMENT: 10 units at HS twice weekly testing and 32+36wk growth US. deliver by 39 (4) : QUALIFIERS: Weeks of gestation: 37 weeks Qualified Code(s): Z3A.37 - 37 weeks gestation of COMMENT: GBS neg, declines ntd genetic & carrier testing, anatomy scan fu views of heart ordered-pt declined as not covered by US (5) Advanced maternal age (AMA) in : COMMENT: declined genetic screening, 36 week growth US recommended, delivery by 40 weeks. (6) Supervision of high-risk : QUALIFIERS: Trimester: second trimester Qualified Code(s): O09.92 - Supervision of high risk , unspecified, second trimester COMMENT: [id number], GINO 09/15/23, [facility] Juan Erica Kieran (7) Hx of gestational diabetes in prior , currently : COMMENT: Ordered HgbA1c at [facility] (8) Vaginal delivery: COMMENT: SM [id number] 37 IAL matt chopra Maternal Data Information GINO Calculator Estimated Delivery Date Method Current WG Current Estimate 09/08/23 Ultrasound #1 37w 3d Other Estimates 09/15/23 LMP (Certain) 36w 3d Vaginal Delivery Operative Information Pre-Operative Diagnosis: see a/p diagnoses Post-Operative Diagnosis: same Surgery / Procedure Performed: Spontaneous Vaginal Delivery Type of Anesthesia: Epidural Special Medications: none Estimated Blood Loss: 200 Fluids Replaced: crystalloid Findings Description of Procedure: Patient began pushing and delivered the head in the PONCHO presentation. The head was delivered atraumatically. The anterior and posterior shoulders delivered without complication followed by the rest of the infant and the was placed on the maternal abdomen. Delayed cord clamping was employed for approximately 60 seconds. Cord was clamped and cut and gentle traction was applied to the cord which avulsed and the placenta was manually removed immediately following it was noted to be intact with three-vessel cord. uterine sweep performed with no retained POC palpated. The perineum and vagina were inspected and noted to have a degree perineal laceration which was repaired in the usual fashion with 3-0 vicryl rapide. . EBL was 200 cc. Patient and infant tolerated delivery well. Amniotic Fluid Description: Clear Placental Delivery Description: Manual Removal Placenta Disposition: [facility] Cord Vessel Description: 3 Vessels Cord Entanglement: None Delayed Cord Clamping: Yes Post Vaginal Delivery Medications Given After Delivery: - (Pitocin) Episiotomy Description: None Complication Complications: None Procedures Urinary/Genital [id number]: [id number] Vaginal Delivery+PP Care([facility])
--- NOTE | 2023-08-21 02:31 | DCINST_ITS ---
Discharge Instructions Diet Discharge Diet: No restrictions Activity Discharge Activity: Return to Normal Activity, May Not Drive (while taking narcotic pain medications.) and May Shower May resume sexual activity in: 4-6 weeks Dressing / Incision Call your doctor if your incision/area has: Continuous Slow Oozing, Sudden Increased Bleeding, Increased Pain/ Swelling, Increased Redness and Foul Smelling Discharge Follow Up Care Please Follow Up With: Mai Mckee MD When: Call [phone] to make an appointment with your doctor in 6 weeks. If you had elevated blood pressure or 4th degree laceration, you will need to be seen in 2 weeks. Test Results: Test results from this visit will be discussed in further detail at your follow- up appointment, if applicable. Discharge Plan Admission Admit Date/Time: 08/20/23 16:35 Attending Provider: Mai Mckee Primary Care Provider: Anisa Linares Discharge Orders/Prescriptions Prescriptions: No Action Novolin N FlexPen 100 unit/mL (3 mL) insulin pen 10 unit subcut QPM Patient Comments: takes 10 units in the am and 10 units in the pm Rx Instructions: Novolin N 10 units sq buspirone 7.5 mg tablet 7.5 mg PO HS PRN (Reason: insomnia) Qty: 30 3RF ferrous gluconate 240 mg (27 mg iron) tablet 240 mg PO DAILY Qty: 30 6RF Prenatabs FA 1 TABLET tablet 1 tab PO DAILY Referrals / Follow Up: Anisa Linares MD [Primary Care Provider] - Disposition Disposition (needs filled in before D/C Order can be placed): Home, Self Care
[2023-08-21 04:17] LABS: Bedside Glucose 128 mg/dL (74-106)
[2023-08-21 05:17] LABS: Bedside Glucose 185 mg/dL (74-106)
[2023-08-21 06:17] LABS: Bedside Glucose 161 mg/dL (74-106)
[2023-08-21] MEDS: Naproxen 500 MG Tablet PO ×2 (08:53→17:04)
[2023-08-21 10:45] LABS: Bedside Glucose 109 mg/dL (74-106)
[2023-08-21 15:54] LABS: Bedside Glucose 142 mg/dL (74-106)
[2023-08-21 20:25] LABS: Bedside Glucose 111 mg/dL (74-106)
[2023-08-22 00:03] VITALS: BP 103/72; PULSE 68; RESP 16; TEMP 36.4; O2SAT 97
[2023-08-22] MEDS: Naproxen 500 MG Tablet PO (01:21)
[2023-08-22 04:16] VITALS: BP 99/69; PULSE 65; RESP 16; O2SAT 96
[2023-08-22 06:47] LABS: Bedside Glucose 103 mg/dL (74-106)
[2023-08-22 08:07] VITALS: BP 105/71; PULSE 70; RESP 16; TEMP 36.3; O2SAT 98
--- NOTE | 2023-08-22 10:37 | PN.OBGYN_ITS ---
Subjective Subjective Patient doing well without complaints. Tolerating PO. Ambulating and voiding without difficulty. Feeding well. Denies chest pain, shortness of breath, calf pain/swelling, fevers, chills, lightheadedness. Objective Data Objective Data fasting glucose 103 this AM. restarted diabetic diet last afternoon. Vital Signs: Vital Signs Temp Pulse Resp BP Pulse Ox O2 Del Method 97.4 F L 70 16 105/71 98 Room Air 08/22/23 08:07 08/22/23 08:07 08/22/23 08:07 08/22/23 08:07 08/22/23 08:07 08/22/23 08:07 Oxygen Delivery Method Room Air Weight: 181 lb 4 oz Body Mass Index (BMI) 30.1 Intake & Output: Intake and Output for Last 24 Hours 08/20/23 08/21/23 08/22/23 23:59 23:59 23:59 Intake Total 1500 / 1500 1250 / 1250 Output Total 800 / 800 950 / 950 Balance 700 / 700 300 / 300 Lab / Micro Data Attestation: I reviewed the patient's lab results. 08/20/23 13:25 Labs: Laboratory Results - last 24 hr 08/21/23 10:02: POC Glucose 109 H 08/21/23 15:30: POC Glucose 142 H 08/21/23 20:02: POC Glucose 111 H 08/22/23 06:26: POC Glucose 103 Physical Exam Const alert and oriented x3 Neck full ROM Lymph Lymphatic: no lymphadenopathy noted Chest inspection of chest normal Resp normal respiratory effort, normal air movement and no retractions Cardio regular rate and regular rhythm GI normal to inspection, nondistended, normoactive bowel sounds Uterus Palpation: uterus fundus firm Extremity normal to inspection and full ROM Skin no rashes or lesions noted Neuro oriented x3 Psych mental status grossly normal Assessment & Plan (1) Vaginal delivery: COMMENT: SM [id number] 37 IAL girl [employer] (2) Gestational diabetes: QUALIFIERS: Gestational diabetes mellitus control: unspecified T rimester: third trimester Qualified Code(s): O24.419 - Gestational diabetes mellitus in , unspecified control COMMENT: 10 units at HS twice weekly testing and 32+36wk growth US. deliver by 39 PLAN: plan to resume CGM at home for 2 weeks, declined insulin dose yesterday. will continue to monitor glucose and follow up with endocrine. reviewed risk of hyperglycemia following pp, understands need for continued follow up and management. PLAN: Plan s/p PPD # 1 1. routine post delivery care 2. breast feeding- support given 3. rh positive 4. rubella immune 5. d/c home today
== END 2023-08-22 11:15 | disposition home or self-care (01) | DRG 807 ==
LOC: WPOUT 16:45 → WP 16:45
PROVIDERS: Admitting Provider Obstetrics & Gynecology; PCP Family Medicine; Referring Provider Obstetrics & Gynecology; Visit Provider Obstetrics & Gynecology
DX: O42.92 Full-term premature rupture of membranes, unspecified as to length of time between rupture and onset of labor (principal); Z37.0 Single live birth; O24.424 Gestational diabetes mellitus in childbirth, insulin controlled; D50.9 Iron deficiency anemia, unspecified; O99.02 Anemia complicating childbirth; O26.23 Pregnancy care for patient with recurrent pregnancy loss, third trimester; O70.0 First degree perineal laceration during delivery; Z3A.37 37 weeks gestation of pregnancy; Z87.59 Personal history of other complications of pregnancy, childbirth and the puerperium
CPT/HCPCS: 59025; 59050; 82962; 84112; 85025; 86780; 86850; 86900; 86901; 99221; J7120; A4216; G0378; J2405